=== PATIENT | male | born 1985 | race Caucasian/White ===

== ENCOUNTER 2019-07-23 09:22 | Emergency (ER) | payer OTHER, SELFPAY ==
[2019-07-23 09:40] VITALS: BP 130/72; PULSE 82; RESP 16; TEMP 37.4; O2SAT 99
--- NOTE | 2019-07-23 09:42 | ED.DENTAL ---
HPI - Dental/Oral General Chief complaint: Dental/Oral Stated complaint: toothache/swollen right face Time Seen by Provider: 07/23/19 10:04 Source: patient and RN notes reviewed Mode of arrival: ambulatory Limitations: no limitations History of Present Illness HPI Narrative: This is a 34 years old male presents to the office for an evaluation of dental pain for two days. Pain began shortly after he ate. He claims he broke his teeth eating hamburger. He noticed a swelling last night and worse this morning. He admits to bad teeth in the past. He considers getting all his teeth removed to prevent this from recurrent. Related Data Home Medications Medication Instructions Recorded Confirmed buprenorphine-naloxone 1 film DAILY 07/23/19 07/23/19 Allergies Allergy/AdvReac Type Severity Reaction Status Date / Time Sulfa (Sulfonamide Allergy Mild Rash Verified 07/23/19 09:56 Antibiotics) Review of Systems Review of Systems: Narrative: CONSTITUTIONAL: Denies fever or feeling ill ENT: Denies trouble swallowing. CARDIOVASCULAR: Denies chest pain RESPIRATORY: Denies dyspnea GASTROINTESTINAL: Denies abdominal pain, nausea, vomiting, GI blood. SKIN: Denies rash MUSCULOSKELETAL: Denies facial injury/trauma NEUROLOGIC: Denies lightheaded PMFSH Past Medical History Medical History (Updated 07/23/19 @ 10:12 by CARY Preston) Hx of opioid abuse Social History Social History Gender identity (if verbalized by the patient): Male Comments At time of signature, I agree with nursing past medical, surgical, social and family history. There is no relevant family history pertinent to the presenting complaint. Exam Narrative: Exam Narrative: GENERAL: This is a well-nourished, well-developed patient, in no apparent distress. Older than state age. EYES: Sclera and conjunctivae normal ENT: External ears normal. Nose and lips normal. Airway patent.The tooth in question is very carious and the gum is swollen and tender around it. There is right side facial swelling without cervical or submandibular lymphadenopathy. The patient appears uncomfortable and in pain. CARDIOVASCULAR: Regular rate and rhythm without murmurs, gallops, or rubs. RESPIRATORY: Clear to auscultation. Breath sounds equal bilaterally. No wheezes, rales, or rhonchi. GASTROINTESTINAL: Abdomen soft, non-tender, nondistended. Bowel sounds are active. No hepato-splenomegaly, or palpable masses. No guarding. NEURO: awake, alert, and oriented to person, place and time. There were no obvious focal neurologic abnormalities. Course Vital Signs Vital signs: Vital Signs Temperature 99.3 F 07/23/19 09:40 Pulse Rate 82 07/23/19 09:40 Respiratory Rate 16 07/23/19 09:40 Blood Pressure 130/72 07/23/19 09:40 Pulse Oximetry 99 07/23/19 09:40 Temperature 99.3 F 07/23/19 09:40 Pulse Rate 82 07/23/19 09:40 Respiratory Rate 16 07/23/19 09:40 Blood Pressure 130/72 07/23/19 09:40 Pulse Oximetry 99 07/23/19 09:40 MDM - Dental/Oral MDM Narrative Medical decision making narrative: Discharge instructions reviewed with patient, as well as provided in writing per nursing staff. The instructions also include specific and strict return/GO TO THE ER as well as f/u information. All questions have been answered, and the patient deny any further questions with discharge and discharge plan. Differential Diagnosis Differential diagnosis: Likely gingival abscess, dental caries, toothache, dental abscess, fracture of tooth and aphthous ulcer Critical Care Time Critical Care Time Critical Care Time: No Discharge Plan Discharge Clinical Impression: Gingivitis Patient Disposition: Home, Self-Care Condition: Stable Instructions: Antibiotic Form, Toothache (ED) Additional Instructions: Take antibiotic until it's gone. Brushing teeth at least twice daily with gentle ismael
== END 2019-07-23 10:11 | disposition home or self-care (01) ==
PROVIDERS: Emergency Provider Nurse Practitioner
DX: K05.10 Chronic gingivitis, plaque induced (principal)
CPT/HCPCS: 99213; G0463

== ENCOUNTER 2019-07-24 11:33 | Emergency (ER) | payer OTHER, SELFPAY ==
--- NOTE | 2019-07-24 11:56 | ED.DENTAL ---
HPI - Dental/Oral General Chief complaint: Dental/Oral <Clayton Schaffer PA-C - Last Filed: 07/24/19 11:59> Stated complaint: Tooth pain, face swelling <Clayton Schaffer PA-C - Last Filed: 07/24/19 11:59> Time Seen by Provider: 07/24/19 11:39 <Clayton Schaffer PA-C - Last Filed: 07/24/19 11:59> Source: patient and family <Clayton Schaffer PA-C - Last Filed: 07/24/19 11:59> Mode of arrival: ambulatory <Clayton Schaffer PA-C - Last Filed: 07/24/19 11:59> Limitations: no limitations <Clayton Schaffer PA-C - Last Filed: 07/24/19 11:59> History of Present Illness HPI Narrative: Patient is a 34-year-old male who presents to emergency department with dental abscess was seen yesterday at urgent care prescribed amoxicillin lidocaine swish and Toradol for pain. Patient notes that the swelling of the face continues to worsen. Patient notes moderate aching pain worse with touch and movement. Patient denies fever chills nausea vomiting or URI symptoms <Clayton Schaffer PA-C - Last Filed: 07/24/19 11:59> Related Data Home medications: Home Medications Medication Instructions Recorded Confirmed buprenorphine-naloxone 1 film DAILY 07/23/19 07/23/19 <Clayton Schaffer PA-C - Last Filed: 07/24/19 11:59> Allergies/adverse reactions: Allergies Allergy/AdvReac Type Severity Reaction Status Date / Time Sulfa (Sulfonamide Allergy Mild Rash Verified 07/24/19 12:00 Antibiotics) <Clayton Schaffer PA-C - Last Filed: 07/24/19 11:59> Review of Systems Review of Systems: All systems reviewed & are unremarkable except as noted in HPI and below <Clayton Schaffer PA-C - Last Filed: 07/24/19 11:59> PMFSH Past Medical History Medical History: Medical History Hx of opioid abuse <Clayton Schaffer PA-C - Last Filed: 07/24/19 11:59> Social History Social History: Social History (Updated 05/28/20 @ 11:57 by Clayton Schaffer PA-C) Substance use type: heroin Gender identity (if verbalized by the patient): Male <Clayton Schaffer PA-C - Last Filed: 07/24/19 11:59> Exam Narrative: Exam Narrative: GENERAL: Well-appearing, well-nourished, and in no acute distress. HEAD: Normocephalic, atraumatic. EYES: PERRLA and EOMI. ENT: Nares clear, no rhinorrhea or epistaxis. Mucous membranes moist. Oropharynx without tonsillar hypertrophy exudate or other lesions. Patient with gross dental caries with fluctuant area above the frontal incisors. Uvula midline no trismus or drooling. NECK: Supple. No adenopathy or masses. EXTREMITIES: Normal range of motion. No edema. SKIN: Warm, dry, no rash. NEURO: No focal deficits. Alert and oriented x3. Cranial nerves II through XII grossly intact PSYCH: Normal mood and affect. <Clayton Schaffer PA-C - Last Filed: 07/24/19 11:59> Course Course Emergency Course: Patient in the room afebrile nontoxic-appearing no distress felt appropriate for discharge home <Clayton Schaffer PA-C - Last Filed: 07/24/19 11:59> Vital Signs Vital signs: Vital Signs Temperature 37.4 C 07/24/19 12:00 Respiratory Rate 79 H 07/24/19 12:00 Blood Pressure 123/79 07/24/19 12:00 Pulse Oximetry 97 07/24/19 12:00 Temperature 37.4 C 07/24/19 12:00 Respiratory Rate 79 H 07/24/19 12:00 Blood Pressure 123/79 07/24/19 12:00 Pulse Oximetry 97 07/24/19 12:00 <Clayton Schaffer PA-C - Last Filed: 07/24/19 11:59> Vital Signs Temperature 37.4 C 07/24/19 12:00 Respiratory Rate 79 H 07/24/19 12:00 Blood Pressure 123/79 07/24/19 12:00 Pulse Oximetry 97 07/24/19 12:00 Temperature 37.4 C 07/24/19 12:00 Respiratory Rate 79 H 07/24/19 12:00 Blood Pressure 123/79 07/24/19 12:00 Pulse Oximetry 97 07/24/19 12:00 <Yoana Melo MD - Last Filed: 07/24/19 14:29> Procedures Other Procedure Procedure 1: Other Procedure:
[2019-07-24 12:00] VITALS: BP 123/79; RESP 79; TEMP 37.4; O2SAT 97
== END 2019-07-24 12:09 | disposition home or self-care (01) ==
PROVIDERS: Emergency Provider Emergency Medicine
DX: K04.7 Periapical abscess without sinus (principal)
CPT/HCPCS: 41800; 99283

== ENCOUNTER 2023-08-22 18:51 | Emergency (ER) | payer OTHER, SELFPAY ==
[2023-08-22 19:06] VITALS: BP 112/78; PULSE 93; RESP 16; TEMP 36.7; O2SAT 98
--- NOTE | 2023-08-22 19:29 | PC.NURSE ---
Attempted to call [facility] for further information on why EMS was called without answer or option to leave a message. Will try again later.
--- NOTE | 2023-08-22 20:09 | PC.NURSE ---
Contacted [facility] transport line who answered. The social services technician stated that the patient came to their facility willingly. While they were assessing him, he appeared paranoid with auditory hallucinations. He made was positive for Fentanyl, meth, suboxone, and THC upon arrival. He then became agitated and ran out of their facility saying that he was going to go kill himself. They contacted PD for him to be transported to the hospital.
[2023-08-22 20:27] LABS: Appearance Urine Clear (Clear); Bilirubin Urine Negative (Negative); Blood Urine Negative (Negative); Color Urine Yellow (Yellow); Glucose Urine UA Negative (Negative); Ketones Urine Negative (Negative); Leukocyte Esterase Ur Negative LEU/UL (Negative); Nitrate Urine Negative (Negative); Protein Urine Negative (Negative); Specific Grav Ur 1.022 (1.001-1.035); Urobilinogen Urine 0.2 mg/dL (<2.0); pH Urine 5.5 (5.0-9.0)
[2023-08-22 20:29] LABS: Add Urine Microscopic? NO
--- NOTE | 2023-08-22 20:30 | ED.GENADULT ---
HPI - General Adult General Chief complaint: Psychiatric Symptoms Stated complaint: HEARING VOICES, SI EARLIER TODAY Time Seen by Provider: 08/22/23 19:07 History of Present Illness HPI narrative: Patient is a 38-year-old gentleman who presents emergency department with chief complaint of needs mental health evaluation. Patient recently checked in 2 chest neck and tested positive for methamphetamine fentanyl cannabinoids patient was apparently paranoid hearing voices and the staff was concerned for mental health issues the patient had made in her mid comments of wanting to harm himself and stated that he would run out in traffic take his life thought people were talking about him patient also reported that he had access to firearms and apparently when crisis was called to come evaluate the patient the patient ran out of the back door and jumped a fence into a playground nearby Related Data Home Medications Medication Instructions Recorded Confirmed buprenorphine 4 mg-naloxone 1 mg 1 film DAILY 07/23/19 07/23/19 sublingual film Allergies Allergy/AdvReac Type Severity Reaction Status Date / Time Sulfa (Sulfonamide Allergy Mild Rash Verified 07/25/19 13:10 Antibiotics) Review of Systems Review of Systems: A 10 system review of systems was completed on the patient and is negative except for what is stated in the HPI. Nursing and ancillary documentation was reviewed. [facility] Past Medical History Medical History (Updated 08/22/23 @ 22:24 by Bogdan Nettles MD) Hx of opioid abuse Social History Social History Substance use type: unknown Gender identity (if verbalized by the patient): Male Exam Narrative: GENERAL: Well-appearing, well-nourished, and in no acute distress. HEAD: Normocephalic, atraumatic. EYES: PERRLA and EOMI. ENT: Nares clear, no rhinorrhea or epistaxis. Mucous membranes moist. NECK: Supple. CHEST: Clear to auscultation. No respiratory distress. HEART: Regular rate and rhythm. No murmur heard. Normal peripheral pulses. ABDOMEN: Soft, nontender, nondistended, normal active bowel sounds. EXTREMITIES: Normal range of motion. No edema. SKIN: Warm, dry, no rash. NEURO: No focal deficits. Alert and oriented x3. PSYCH: Normal mood and affect. Course Vital Signs Vital signs: Vital Signs Temperature 36.7 C 08/22/23 19:06 Pulse Rate 93 08/22/23 19:06 Respiratory Rate 16 08/22/23 19:06 Blood Pressure 112/78 08/22/23 19:06 Pulse Oximetry 98 08/22/23 19:06 Oxygen Delivery Room Air 08/22/23 19:06 Temperature 36.7 C 08/22/23 19:06 Pulse Rate 93 08/22/23 19:06 Respiratory Rate 16 08/22/23 19:06 Blood Pressure 112/78 08/22/23 19:06 Pulse Oximetry 98 08/22/23 19:06 Oxygen Delivery Room Air 08/22/23 19:06 Medical Decision Making MDM Narrative Medical decision making narrative: Differential diagnosis includes suicidal ideation polysubstance abuse, personality disorder Patient underwent psychiatric screening labs showed normal CBC with a white count of 4.8 hemoglobin was 12.4 electrolytes within normal limits TSH was low at 0.290 free T4 was 1.29 which is within normal limits urinalysis showed no evidence UTI urine drug screen was positive for amphetamines cocaine and cannabinoids ETOH was negative COVID flu and RSV are negative Patient is medically clear for psychiatric evaluation referral transferred admission The patient was seen by crisis and was allowed to safety plan the patient will be discharged Vital Signs Vital Signs: Vital Signs Temperature 36.7 C 08/22/23 19:06 Pulse Rate 93 08/22/23 19:06 Respiratory Rate 16 08/22/23 19:06 Blood Pressure 112/78 08/22/23 19:06 Pulse Oximetry 98 08/22/23 19:06 Oxygen Delivery Room Air 08/22/23 19:06 Temperature 36.7 C 08/22/23 19:06 Pulse Rate 93 08/22/23 19:06 Respiratory Rate
[2023-08-22 20:41] LABS: Basophils Absolute Auto 0.1 K/mm3 (0.0-0.1); Eosinophils Absolute Auto 0.1 K/mm3 (0-0.3); Eosinophils Percent Auto 1.4 % (0-4.4); Hemoglobin 12.4 g/dL (14.0-18.0); Immature Granulocyte Absolute 0.01 K/mm3 (0.00-0.031); Immature Granulocyte Percent A 0.2 % (0-0.5); Lymphocytes Absolute Auto 1.85 K/mm3 (0.9-3.2); Lymphocytes Percent Auto 38.2 % (18.3-44.2); Mean Corpuscular HGB Conc 32.6 g/dl (32-36); Mean Corpuscular Hemoglobin 28.6 pg (26-34); Mean Corpuscular Volume 87.8 fl (80-100); Mean Platelet Volume 10.3 fl (7.4-10.4); Monocytes Absolute Auto 0.3 K/mm3 (0.1-0.6); Monocytes Percent Auto 6.6 % (2.6-8.5); Neutrophils Absolute Auto 2.5 K/mm3 (1.3-6.7); Neutrophils Percent Auto 52.6 % (45.5-73.1); Platelet Count Result 220 k/mm3 (150-375); Red Blood Count 4.33 M/mm3 (4.6-6.20); Red Cell Distribution Width 14.9 % (11.5-14.5); White Blood Count 4.8 K/mm3 (4.5-10.0)
[2023-08-22 20:46] LABS: Barbiturate Screen Urine Negative (Negative); Benzodiazepines Screen Urine Negative (Negative)
[2023-08-22 20:48] LABS: Cannabinoid Screen Urine Positive (Negative); Cocaine Screen Urine Positive (Negative); Methadone Screen Urine Negative (Negative); Opiate Screen Urine Negative (Negative); Phencyclidine Screen Urine Negative (Negative)
[2023-08-22 20:50] LABS: Ethanol < 10 mg/dL (<10)
[2023-08-22 20:51] LABS: Alanine Aminotransferase 30 U/L (6-50); Albumin Level 4.6 g/dL (3.5-5.1); Alkaline Phosphatase 117 U/L (38-126); Anion Gap 8 mmol/L (4-12); Aspartate Amino Transferase 40 U/L (17-59); Bilirubin,Total 0.4 mg/dL (0.2-1.3); Blood Urea Nitrogen 31 mg/dL (9-20); Calcium 9.6 mg/dL (8.4-10.2); Carbon Dioxide 27 mmol/L (22-30); Chloride 105 mmol/L (98-107); Estimated CRCL calculation 77 ml/min; Estimated Glomerular Filt Rate > 60; Glucose 102 mg/dL (65-110); Potassium 4.3 mmol/L (3.4-5.0); Sodium 140 mmol/L (137-145)
[2023-08-22 21:08] LABS: Amphetamine Screen Urine Positive (Negative)
[2023-08-22 21:16] LABS: Influenza A QL RT-PCR Negative (Negative); Influenza B QL RT-PCR Negative (Negative); RSV RNA, RT-PCR Negative (Negative); SARS-CoV-2 RNA PCR Negative (Negative)
[2023-08-22 22:08] LABS: Free T4 Free Thyroxine Reflex 1.29 ng/dL (0.78-2.19)
[2023-08-22 22:47] LABS: Total Triiodothyronine (T3) 2.86 NG/ML (0.97-1.69)
== END 2023-08-22 23:46 | disposition home or self-care (01) ==
PROVIDERS: Emergency Provider Emergency Medicine
DX: R45.851 Suicidal ideations (principal); F19.10 Other psychoactive substance abuse, uncomplicated; Z11.52 Encounter for screening for COVID-19
CPT/HCPCS: 36415; 80053; 80307; 81003; 84439; 84443; 84480; 85025; 87637; 99284

== ENCOUNTER 2024-07-25 06:52 | Emergency (ER) | payer OTHER, SELFPAY ==
--- NOTE | ~2024-07-25 | CT_ITS ---
History: Altered mental status, unresponsive. PROCEDURE: CT head without contrast. COMPARISON: None TECHNIQUE: Axial imaging of the head performed from the skull base to the vertex without IV contrast. Sagittal a nd coronal reformations obtained. Examination is somewhat limited by motion artifact DLP: 605 mGy-cm FINDINGS: Postoperative change within the right frontoparietal lobe. Loss of lu-white matter differentiation with effacement of the sulci in the bilateral frontal lobes , suggesting edema. Effacement of the fissures and gyri within the cerebellum, also suggesting edema. The ventricles are unremarkable in size, shape and position. There is no mass, mass effect or midline shift. There is no abnormal extra-axial fluid collection or intracranial hemorrhage. Visualized paranasal sinuses are clear. The mastoid air cells are well aerated. Postcraniotomy change within the right frontoparietal lobe. No acute displaced fractures within the remainder of the overlying cranium. Impression: No acute intracranial hemorrhage or suspicious mass effect. Findings suggesting intracranial edema, specifically within the bilateral frontal lobes and cerebellu m. Reviewed, dictated and finalized at location A. Impression: No acute intracranial hemorrhage or suspicious mass effect. Findings suggesting intracranial edema, specifically within the bilateral front al lobes and cerebellum.
[2024-07-25 06:52] VITALS: BP 134/80; PULSE 62; RESP 15; TEMP 36.7; O2SAT 100
--- NOTE | 2024-07-25 07:30 | PC.NURSE ---
Patient not cooperating with questions. When patient asked any question patient responds with leave me alone, I'm tired and refuses to open his eyes and cooperate
--- NOTE | 2024-07-25 07:38 | ECG_ITS ---
Test Date: 2024-07-25 07:58:11 Measurements Intervals [place] Rate: 52 P: 71 WI: 158 QRS: 73 QRSD: 90 T: 76 QT: 442 QTc: 413 Interpretive Statements SINUS BRADYCARDIA MODERATE VOLTAGE CRITERIA FOR LVH, CONSIDER NORMAL VARIANT [MEETS CRITERIA IN ONE OF: R(aVL), S(V1), R(V5), R(V5/V6)+S(V1)] NONSPECIFIC ST AND T WAVE ABNORMALITY No previous ECG available for comparison Electronically Signed On 07-25-2024 15:06:05 CDT by Shila Arora M.D.
[2024-07-25 07:43] LABS: Glucose Point of Care 168 mg/dl (65-105)
[2024-07-25 07:56] LABS: Glucose Point of Care 82 mg/dl (65-105)
[2024-07-25 07:59] LABS: Basophils Percent Auto 0.4 % (0.2-1.2); Eosinophils Percent Auto 0.2 % (0-4.4); Hematocrit 35.4 % (42.0-52.0); Hemoglobin 11.7 g/dL (14.0-18.0); Immature Granulocyte Absolute 0.01 K/mm3 (0.00-0.031); Immature Granulocyte Percent A 0.2 % (0-0.5); Lymphocytes Percent Auto 27.1 % (18.3-44.2); Mean Corpuscular HGB Conc 33.1 g/dl (32-36); Mean Corpuscular Hemoglobin 31.8 pg (26-34); Mean Corpuscular Volume 96.2 fl (80-100); Mean Platelet Volume 10.6 fl (7.4-10.4); Monocytes Absolute Auto 0.3 K/mm3 (0.1-0.6); Monocytes Percent Auto 6.1 % (2.6-8.5); Neutrophils Absolute Auto 3.2 K/mm3 (1.3-6.7); Platelet Count Result 161 k/mm3 (150-375); Red Blood Count 3.68 M/mm3 (4.6-6.20); Red Cell Distribution Width 15.3 % (11.5-14.5); White Blood Count 4.8 K/mm3 (4.5-10.0)
[2024-07-25 08:08] LABS: Ethanol < 10 mg/dL (<10)
[2024-07-25 08:09] LABS: Lactic Acid Reflex 0.9 mmol/L (0.7-2.0)
[2024-07-25 08:10] LABS: Alanine Aminotransferase 49 U/L (6-50); Albumin Level 4.6 g/dL (3.5-5.1); Alkaline Phosphatase 81 U/L (38-126); Anion Gap 10 mmol/L (4-12); Aspartate Amino Transferase 56 U/L (17-59); Bilirubin,Total 0.7 mg/dL (0.2-1.3); Blood Urea Nitrogen 25 mg/dL (9-20); Calcium 9.7 mg/dL (8.4-10.2); Carbon Dioxide 26 mmol/L (22-30); Chloride 105 mmol/L (98-107); Creatine Kinase 153 U/L (55-170); Estimated CRCL calculation 106 ml/min; Estimated Glomerular Filt Rate > 60; Glucose 84 mg/dL (65-110); Potassium 4.1 mmol/L (3.4-5.0); Sodium 141 mmol/L (137-145)
--- OUTSIDE RECORDS SUMMARY | 2024-07-25 08:16 | XMS_ITS | Encounter Summary ---
Author Organization [facility] Healthcare Address [address] [place] [address] Care Team Providers Care Manager Combination Name Role Phone Cecilio Tenorio MD Primary Care Provider [phone] Jay Cardenas MD Primary Care Provider [phone] Encounter Details Date Type Department Care Team (Late st Contact Info) Description 07/20/2020 [facility] Hand Off Program [address] [place] [address] Nora Rivera Social History Tobacco Use Types Packs/Day Years Used Date Smoking Tobacco: Every Day Cigarettes Smokeless Tobacco: Never Alcohol Use Standard Drinks/Week Comments Not Currently 0 (1 standard drink = 0.6 oz pur e alcohol) Sex and Gender Information Value Date Recorded Sex Assigned at Not on file Legal Sex Male 8:52 PM [employer] Gender Identity Not on file Sexual Orientation Not on file documented as of this encounter Plan of Treatment Not on file documented as of this encounter Visit Diagnoses Not on filedocumented in this encounter Additional Health Concerns Infection Onset Date Last Indicated Resolved Time COVID: Suspected 09/12/2022 09/12/2022 09/12/2022 6:49 AM CDT COVID: Suspected 09/12/2022 09/12/2022 09/12/2022 9:26 AM CDT COVID: Suspected 03/20/2024 03/20/2024 03/20/2024 3:11 AM [employer] HEL[employer] COVID: Suspected 03/26/2024 03/26/2024 03/26/2024 9:07 AM [employer]NING 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
--- OUTSIDE RECORDS SUMMARY | 2024-07-25 08:16 | XMS_ITS | Referral Summary ---
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 50.3 % [facility] Plt 198 150 - 400 K/cumm [facility] MPV 10.3 9.1 - 12.3 fL [facility] RBC 4.24(L) 4.30 - 5.80 M/cumm [facility] MCV 90.6 81.3 - 96.4 fL [facility] MCH 29.7 27.1 - 33.3 pg [facility] MCHC 32.8 32.3 - 35.7 g/dL [facility] RDW CV 14.5 11.1 - 14.9 % [facility] RDW SD 48.0 35.7 - 48.1 fL [facility] NRBC abs 0.00 0.00 - 0.01 K/cumm [facility] Blood Venous blood specimen / Unknown 05/03/2024 9:26 AM PREVENTION SPECIALIST 05/03/2024 9:32 AM PREVENTION SPECIALIST Narrative [facility] - 05/03/2024 9:42 AM PREVENTION SPECIALIST Potential Stroke Patient us Aden Grider MD LAB BLOOD ORDERABLES Final Resul t Performing Organization Address [facility] de Phone Number [address] [place] [address] * aPTT (05/03/2024 9:26 AM PREVENTION SPECIALIST) aPTT 32 22 - 37 sec Comment: Interpretive data aPTT test has not been evaluated for monitoring heparin therapy. The anti-Xa is the preferred test. Current interpretive data was last revised on 2019. Blood Venous blood specimen / Unknown 05/03/2024 9:26 AM PREVENTION SPECIALIST 05/03/2024 9:32 AM PREVENTION SPECIALIST Narrative [facility] - 05/03/2024 9:46 AM PREVENTION SPECIALIST Potential stroke patient. us Aden Grider MD LAB BLOOD ORDERABLES Final Resul t Performing Organization Address City/[facility] Co de Phone Number [address] [place] [address] * Protime-INR (05/03/2024 9:26 AM PREVENTION SPECIALIST) PT 14.6 12.0 - 14.6 sec INR 1.1 0.9 - 1.2 [facility] Comment: Ref Range High Interpretive data Oral anticoagulant therapeutic ranges: Venous thromboembolism prophylaxis or treatment: 2.0-3.0 CARDIOLOGY Standard range: 2.0-3.0 High-intensity range: 2.5-3.5 Refer to indication-specific guidelines for appropriate target ranges for prosthetic heart valve replacement. Current interpretive data was last revised on 2019. Blood 05/03/2024 9:26 AM PREVENTION SPECIALIST 05/03/2024 9:32 AM PREVENTION SPECIALIST us Aden Grider MD LAB BLOOD ORDERABLES Final Resul t Performing Organization Address City/[facility]/ZIP Co de Phone Number [facility] [address] [place] [address] * POCT glucose (05/03/2024 9:23 AM PREVENTION SPECIALIST) Pathologist [facility] Glucose, POC 125 70 - 199 mg/dL Glucose comment 1 Use This Result [facility] Blood 05/03/2024 9:23 AM PREVENTION SPECIALIST 05/03/2024 9:23 AM PREVENTION SPECIALIST us Notinfile Unknown LAB POCT ORDERABLES - DEVICE F inal Result Performing Organization Address City/[facility] Co de Phone Number [address] [employer] [place] [address] * ECG 12 lead (05/03/2024 9:14 AM PREVENTION SPECIALIST) [facility] Ventricular Rate EKG/Min 49 BPM [facility] Atrial Rate 49 BPM [facility] LA-Interval (MSEC) 148 ms [facility] QRS-Interval (MSEC) 84 ms [facility] QT-Interval (MSEC) 478 ms [facility] QTc 431 ms [facility] P [place] 56 degrees [facility] R [place] 63 degrees [facility] T [place] 70 degrees [facility] Diagnosis Sinus bradycardia Otherwise normal ECG When compared with ECG of 12-SEP-2022 16:25, No significant change was found Confirmed by RIA SALAZAR M.D. ([id number]) on 05/04/2024 6:46:57 PM [facility] 05/03/2024 9:14 AM PREVENTION SPECIALIST 05/04/2024 6:46 PM CDT us Aden Grider MD ECG ORDERABLES Final Result [facility] * (ABNORMAL) Hepatitis panel, acute Blood (03/20/2024 5:38 PM PREVENTION SPECIALIST) Hep A IgM Nonreactive Nonreactive Comment: Interpretive Data: If Hep A IgM Ab is reported as Equivocal, a new sample should be drawn in two weeks for testing. Current interpretive data was last revised on 19. Hep B core IgM Nonreactive Nonreactive [facility] Comment: Interpretive Data If HepB Core IgM Ab is reported as Equivocal, a new sample should be drawn in two weeks for testing. Current interpretive data was last revised on 19. Hep C Ab Reactive(A) Nonreactive [facility] Comment: Reactive for HCV antibodies. This may represent current or past HCV infection. Supplemental molecular testing will be automatically performed to determine current infection status in accordance with current CDC screening recommendations. Current interpretive data was last revised on 21 Interpretive Data Nonreactive: Antibodies to HCV not detected. Does NOT exclude the possibility of recent exposure to HCV. Equivocal: Equivocal for HCV antibodies. Supplemental molecular testing will be automatically performed to determine infection status in accordance with current CDC screening recommendations. Reactive: Positive for HCV antibodies. This may represent current or past HCV infection. Supplemental molecular testing will be automatically performed to determine current infection status in accordance with current CDC screening recommendations. Interpretive data was last revised on 2019. HepBsAg Nonreactive Nonreactive [facility] Blood 03/20/2024 5:38 PM PREVENTION SPECIALIST 03/20/2024 5:50 PM PREVENTION SPECIALIST us Yazmin Farias NP LAB MICROBIOLOGY - GENERAL ORDERABLES Final Result [facility] [address] [place] [address] from Last 3 Months or Most Recently Relevant to Health Maintenance Insurance [address] [place] [address] Advance Directives For more information, please contact: [phone] * Full Code (Latest Code Status on File) Date Activated Date Inactivated Comments 03/20/2024 5:03 PM 03/21/2024 2:28 PM * Full Code Date Activated Date Inactivated Comments 09/12/2022 2:40 PM 09/13/2022 4:21 PM * Full Code Date Activated Date Inactivated Comments 09/12/2022 1:26 PM 09/12/2022 2:40 PM Care Teams Window Shade Estimator Relationship Specialty Start Date End Date Jay Cardenas MD [address] [facility] [address] [address] PCP - General Family Medicine 03/16/23
--- OUTSIDE RECORDS SUMMARY | 2024-07-25 08:16 | XMS_ITS | Clinical Summary ---
Author Organization [facility] Virtual Care Address [address] [place] [phone] Phone Care Team Providers Care Typo Machine Operator Name Role Phone Jay Cardenas MD Primary Care Provider [phone] Allergies Active Allergy Reactions Criticality Noted Date [...] fracture of neck of metacarpal bone 11/28/2017 Encounters Date Type Department Care Team Description 07/25/2024 2:57 AM CDT - 07/25/2024 3:26 AM T [address] [address] Discharge Disposition: Incorrect Patient 06/25/2024 Telephone [facility] Family Medicine at [address] [place] [phone] Jay Cardenas MD 2nd no show letter sent 06/25/24 06/23/2024 12:39 PM CDT - 06/23/2024 2:06 PM T Emergency [address] [address] Discharge Disposition: Left Against Medical Advice 06/02/2024 Telephone [facility] Family Medicine at [address] [place] [address] Jay Cardenas MD Referral Request 05/03/2024 9:26 AM ROLL SHOP SUPERVISOR - 05/03/2024 10:[address] [address] Aden Grider MD Seizure (HCC) (Primary Dx) Discharge Disposition: Left Against Medical Advice from Last 3 Months Immunizations Immunization Administration Dates Next Due Influenza, Trivalent, Split, Preservative Free, Intradermal 01/13/2014 Influenza, Unspecified 12/13/2023(Deferr ed: Patient decision),03/16/2023(Deferred: Patient Refused),01/09/2023(Deferred: Patient decision) Pneumococcal Polysaccharide PPV23 01/13/2014 Tdap 05/24/2023,04/22/2018 Surgical History Surgery Date Site/Laterality Comments BRAIN SURGERY Medical History Medical History Date Comments Hepatitis C TBI (traumatic brain injury) ([facility]) Social History Tobacco Use Types Packs/Day Years [...] on file Legal Sex Male 8:52 PM ROLL SHOP SUPERVISOR Gender Identity Not on file Sexual Orientation Not on file Obstetrics History Last Filed Vital Signs Vital Sign Reading Time Taken Comments Blood Pressure 134/96 06/23/2024 12:42 PM CDT Pulse 69 06/23/2024 12:42 PM CDT Temperature 37.1 C (98.8 F) 06/23/2024 12:42 PM CDT Respiratory Rate 16 06/23/2024 12:42 PM CDT Oxygen Saturation 98% 06/23/2024 12:42 PM CDT Inhaled Oxygen Concentration - - Weight 65.1 kg (143 lb 8.3 oz) 05/03/2024 9:26 A M ROLL SHOP SUPERVISOR Height 177.8 cm (5' 10) 03/26/2024 8:38 AM ROLL SHOP SUPERVISOR Body Mass Index 20.59 03/26/2024 8:38 AM ROLL SHOP SUPERVISOR Plan of Treatment Health Maintenance Due Date Last Done Comments Varicella Vaccines (1 of 2 - 13+ 2-dose series) 1996 Hepatitis B Screening 2001 Pneumococcal vaccine <65 (2 of 2 - PCV) 01/13/2015 01/13/2014 Regular Well Visit/Exam 18-64 03/16/2024 03/16/2023 Influenza Vaccine (Season Ended) 2024 01/13/2014 Depression Screening 03/26/2025 03/26/2024, 03/26/2024, 03/16/2023, Additional history exists DTaP/Tdap/Td Vaccine (3 - Td or Tdap) 05/23/2033 05/24/2023, 04/22/2018 Hepatitis C Screening Completed 03/20/2024 , 03/16/2023, 03/16/2023, Additional history exists HPV Vaccines Aged Out No longer eligi ble based on patient's age to complete this topic Procedures Procedure Name Priority Date/Time Associated Diagnosis Comments CTA STROKE HEAD NECK W CONTRAST Critical/Life-T hreatening 05/03/2024 9:[address] STROKE PROTOCOL WO CONTRAST Critical/Life-T hreatening 05/03/2024 9:32 AM ROLL SHOP SUPERVISOR DIFFERENTIAL AUTO STAT 05/03/2024 9:2 6 AM ROLL SHOP SUPERVISOR APTT STAT 05/03/2024 9:26 AM ROLL SHOP SUPERVISOR PROTIME-INR STAT 05/03/2024 9:26 AM ROLL SHOP SUPERVISOR CBC WITH AUTO DIFFERENTIAL STAT 05/03/2024 9:26 AM ROLL SHOP SUPERVISOR POCT GLUCOSE DEVICE Routine 05/03/2024 9 :23 AM ROLL SHOP SUPERVISOR ECG 12-LEAD STAT 05/03/2024 9:14 AM ROLL SHOP SUPERVISOR HEPATITIS PANEL, ACUTE Routine 03/20/2024 5:38 PM ROLL SHOP SUPERVISOR from Last 3 Months or Most Recently Relevant to Health Maintenance Results * CTA Stroke Head Neck W Contrast (05/03/2024 9:38 AM ROLL SHOP SUPERVISOR) Anatomical Region Laterality Modality Head and Neck N/A Computed Tomogra phy 05/03/2024 9:43 AM ROLL SHOP SUPERVISOR Narrative 05/03/2024 9:59 AM ROLL SHOP SUPERVISOR EXAM DESCRIPTION: CTA STROKE HEAD NECK W [...] immunosuppression, or patients with known primary cancer. http://pubs.rsna.org/doi/pdf/10.1148/radiol.7318370047 The findings of no intracranial large vessel occlusion were communicated to the ordering clinician by the operation litigation support analyst at the time of this dictation on 05/03/2024 at 9:57 a.m. central standard time. THIS IS AN ELECTRONICALLY VERIFIED FINAL REPORT 05/03/2024 9:59 AM - Electronically signed by Lam BERRY T: Report ID: [id number] Reading Location: [place] [address] Procedure Note Lam Arora, DO - 05/03/2024 [...] withimmunosuppression, or patients with known primary cancer. http://pubs.rsna.org/doi/pdf/10.1148/radiol.5420550146 The findings of no intracranial large vessel occlusion were communicatedto the ordering clinician by the operation litigation support analyst at the time of this dictation on 05/03/2024 at 9:57 a.m. central standard time. THIS IS AN ELECTRONICALLY VERIFIED FINAL REPORT 05/03/2024 9:59 AM - Electronically signed by Lam BERRY T: Report ID: [id number] Reading Location: [id number] us Aden Grider MD IMG CT PROCEDURES Final Result * CT Stroke Head WO Contrast (05/03/2024 9:32 AM ROLL SHOP SUPERVISOR) Anatomical Region Laterality Modality Head N/A Computed Tomogra phy 05/03/2024 9:36 AM ROLL SHOP SUPERVISOR Addenda Addendum by Miguel Hyde MD on 05/03/2024 9:54 AM ROLL SHOP SUPERVISOR ADDENDUM: This addendum report supersedes the original report dated 05/03/2024 These significant findings were reported by telephone to Dr. Grider on 05/03/2024 at 0945 . END OF ADDENDUM REPORT THIS IS AN ELECTRONICALLY VERIFIED FINAL REPORT 05/03/2024 9:54 AM Addendum Electronically signed by Miguel CAMARGO T: Report ID: [id number] Reading Location: [id number] Narrative 05/03/2024 9:44 AM ROLL SHOP SUPERVISOR EXAM DESCRIPTION: CT STROKE HEAD WO CONTRAST [...] 9:44 AM - Electronically signed by Miguel Hyde M.D. NS T: Report ID: [id number] Reading Location: [id number] Procedure Note Miguel Hyde MD - 05/03/2024 [...] Sagittal and coronal images reconstructed. Images stored on[employer]. Automated exposure control was used as a [...] signed by Miguel CAMARGO T: Report ID: [id number] Reading Location: [place] [address] Aden Grider MD IM CT PROCEDURES Edited Result - Final * Differential, auto (05/03/2024 9:26 AM ROLL SHOP SUPERVISOR) Pathologist [facility] Neutrophil abs 2.6 1.5 - 6.5 K/cumm Imm gran abs 0.0 0.0 - 0.1 K/cumm [facility] Lymphocyte abs 1.0 0.8 - 3.3 K/cumm [facility] Monocyte abs 0.2 0.2 - 0.8 K/cumm [facility] Eosinophil abs 0.0 0.0 - 0.5 K/cumm [facility] Basophil abs 0.0 0.0 - 0.1 K/cumm [facility] Neutrophil pct 67.5 % [facility] Comment: Interpretive Data Percent cell count reference ranges are not reported, since discordance with absolute values may lead to misinterpretation of CBC data. Current Interpretive Data was last revised on 2017. Imm gran pct 0.3 % [facility] Comment: Interpretive Data Percent cell count reference ranges are not reported, since discordance with absolute values may lead to misinterpretation of CBC data. Current Interpretive Data was last revised on 2017. Lymphocyte pct 25.4 % [facility] Comment: Interpretive Data Percent cell count reference ranges are not reported, since discordance with absolute values may lead to misinterpretation of CBC data. Current Interpretive Data was last revised on 2017. Monocyte pct 5.7 % [facility] Comment: Interpretive Data Percent cell count reference ranges are not reported, since discordance with absolute values may lead to misinterpretation of CBC data. Current Interpretive Data was last revised on 2017. Eosinophil pct 0.3 % [facility] Comment: Interpretive Data Percent cell count reference ranges are not reported, since discordance with absolute values may lead to misinterpretation of CBC data. Current Interpretive Data was last revised on 2017. Basophil pct 0.8 % [facility] Comment: Interpretive Data Percent cell count reference ranges are not reported, since discordance with absolute values may lead to misinterpretation of CBC data. Current Interpretive Data was last revised on 2017. Blood 05/03/2024 9:26 AM ROLL SHOP SUPERVISOR 05/03/2024 9:32 AM ROLL SHOP SUPERVISOR dAen Grider MD LAB BLOOD ORDERABLES Final Resul t Performing Organization Address City/[facility] Co de Phone Number [facility] [address] [place] [address] * (ABNORMAL) CBC with auto differential (05/03/2024 9:26 AM ROLL SHOP SUPERVISOR) WBC 3.9 3.8 - 9.9 K/cumm Hgb 12.6(L) 13.0 - 17.5 g/dL [facility] Hct 38.4(L) 38.9 - 50.3 % [facility] Plt 198 150 - 400 K/cumm [facility] MPV 10.3 9.1 - 12.3 fL [facility] RBC 4.24(L) 4.30 - 5.80 M/cumm [facility] MCV 90.6 81.3 - 96.4 fL [facility] MCH 29.7 27.1 - 33.3 pg [facility] MCHC 32.8 32.3 - 35.7 g/dL [facility] RDW CV 14.5 11.1 - 14.9 % [facility] RDW SD 48.0 35.7 - 48.1 fL [facility] NRBC abs 0.00 0.00 - 0.01 K/cumm [facility] Blood Venous blood specimen / Unknown 05/03/2024 9:26 AM ROLL SHOP SUPERVISOR 05/03/2024 9:32 AM ROLL SHOP SUPERVISOR Narrative [facility] - 05/03/2024 9:42 AM ROLL SHOP SUPERVISOR Potential Stroke Patient us Aden Grider MD LAB BLOOD ORDERABLES Final Resul t Performing Organization Address City/[facility]/ZIP Co de Phone Number [facility] [address] [place] [address] [place] [address] * aPTT (05/03/2024 9:26 AM ROLL SHOP SUPERVISOR) [facility] aPTT 32 22 - 37 sec Comment: Interpretive data aPTT test has not been evaluated for monitoring heparin therapy. The anti-Xa is the preferred test. Current interpretive data was last revised on 2019. Blood Venous blood specimen / Unknown 05/03/2024 9:26 AM ROLL SHOP SUPERVISOR 05/03/2024 9:32 AM ROLL SHOP SUPERVISOR Narrative [facility] - 05/03/2024 9:46 AM ROLL SHOP SUPERVISOR Potential stroke patient. Aden Grider MD LAB BLOOD ORDERABLES Final Resul t Performing Organization Address City/[facility] Co de Phone Number [address] [address] * Protime-INR (05/03/2024 9:26 AM ROLL SHOP SUPERVISOR) [facility] PT 14.6 12.0 - 14.6 sec INR 1.1 0.9 - 1.2 [facility] Comment: Ref Range High Interpretive data Oral anticoagulant therapeutic ranges: Venous thromboembolism prophylaxis or treatment: 2.0-3.0 CARDIOLOGY Standard range: 2.0-3.0 High-intensity range: 2.5-3.5 Refer to indication-specific guidelines for appropriate target ranges for prosthetic heart valve replacement. Current interpretive data was last revised on 2019. Blood 05/03/2024 9:26 AM ROLL SHOP SUPERVISOR 05/03/2024 9:32 AM ROLL SHOP SUPERVISOR Aden Grider MD LAB BLOOD ORDERABLES Final Resul t [address] [address] * POCT glucose (05/03/2024 9:23 AM ROLL SHOP SUPERVISOR) [facility] Glucose, POC 125 70 - 199 mg/dL Glucose comment 1 Use This Result [facility] Blood 05/03/2024 9:23 AM ROLL SHOP SUPERVISOR 05/03/2024 9:23 AM ROLL SHOP SUPERVISOR us Notinfile Unknown LAB POCT ORDERABLES - DEVICE F inal Result [facility] [address] [facility] Department [place] [address] * ECG 12 lead (05/03/2024 9:14 AM ROLL SHOP SUPERVISOR) Pathologist [facility] Ventricular Rate EKG/Min 49 BPM [facility] Atrial Rate 49 BPM [facility] [place]-Interval (MSEC) 148 ms [facility] QRS-Interval (MSEC) 84 ms [facility] QT-Interval (MSEC) 478 ms [facility] QTc 431 ms [facility] P [place] 56 degrees [facility] R [place] 63 degrees [facility] T [place] 70 degrees [facility] Diagnosis Sinus bradycardia Otherwise normal ECG When compared with ECG of 12-SEP-2022 16:25, No significant change was found Confirmed by RIA SALAZAR M.D. ([id number]) on 05/04/2024 6:46:57 PM [facility] 05/03/2024 9:14 AM ROLL SHOP SUPERVISOR 05/04/2024 6:46 PM CDT us Aden Grider MD ECG ORDERABLES Final Result Performing Organization Address City/[facility] Co de Phone Number [facility] * (ABNORMAL) Hepatitis panel, acute Blood (03/20/2024 5:38 PM ROLL SHOP SUPERVISOR) Pathologist [facility] Hep A IgM Nonreactive Nonreactive Comment: Interpretive Data: If Hep A IgM Ab is reported as Equivocal, a new sample should be drawn in two weeks for testing. Current interpretive data was last revised on 19. Hep B core IgM Nonreactive Nonreactive [facility] Comment: Interpretive Data If HepB Core IgM Ab is reported as Equivocal, a new sample should be drawn in two weeks for testing. Current interpretive data was last revised on 19. Hep C Ab Reactive(A) Nonreactive [facility] Comment: Reactive for HCV antibodies. This may [...] last revised on 2019. HepBsAg Nonreactive Nonreactive [facility] Blood 03/20/2024 5:38 PM ROLL SHOP SUPERVISOR 03/20/2024 5:50 PM ROLL SHOP SUPERVISOR Yazmin Farias NP LAB MICROBIOLOGY - GENERAL ORDERABLES Final Result [facility] [address] [facility] Department [place] [address] from Last 3 Months or Most Recently Relevant to Health Maintenance Insurance Advance Directives For more information, please contact: [phone] * Full Code (Latest Code Status on File) Date Activated Date Inactivated Comments 03/20/2024 5:03 PM 03/21/2024 2:28 PM * Full Code Date Activated Date Inactivated Comments 09/12/2022 2:40 PM 09/13/2022 4:21 PM * Full Code Date Activated Date Inactivated Comments 09/12/2022 1:26 PM 09/12/2022 2:40 PM Care Teams Typo Machine Operator Relationship Specialty Start Date End Date Jay Cardenas MD [address] [facility] [address] GARCIA [address] [place] [address] PCP - General Family Medicine 03/16/23
--- OUTSIDE RECORDS SUMMARY | 2024-07-25 08:16 | XMS_ITS ---
Author Organization [facility] Address [address] [place] [address] Care Team Providers Care Chainstitch Sewing Machine Operator Name Role Phone Melecio Royal Primary Care Provider Inderjit Peralta Unavailable [phone] REASON FOR VISIT mat new, Suboxone, Opioids, last use 05/26/2024, released from [facility] Social History Sex Assigned At : Social History Observation Description Sex Assigned At Male Encounters Encounter Location Date Provider Diagnosis [address] [place] [address] 05/29/2024 Inderjit Peralta Plan Of Treatment No Information Progress Notes * RASHAD Arnoldo ValadezDOB:1985 (39 yo M)Acc No.[id number]:05/29/2024 UNLOCKED PROGRESS NOTE Patient: Arnoldo PARSONS Provider: HIREN Zhang, FERRYBOAT PILOT, CASINO SURVEILLANCE OFFICER-C :1985 A ge:39 Y S ex:Male Date:05/29/2024 Phone: Address:[address] [place], [place] [id number] Pcp:Melecio Royal Subjective: * Chief Complaints: * 1 . mat new, Suboxone, Opioids, last use 05/26/2024, released from [facility]. * Medical History: Objective: * Vitals: Assessment: Plan: * Treatment: * * Electronic signature of Ursula Peralta APRN, [id number] on 07/25/2024 at 02:58 AM CDT Sign off status: Pending * Provider: Allyson Peralta, MSN, FERRYBOAT PILOT, [employer]INO SURVEILLANCE OFFICER-C Date: 0 05/29/2024 Generated for Mago suarez/Olive/Mitch on: 0 07/25/2024 02:58 AM CDT
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
--- OUTSIDE RECORDS SUMMARY | 2024-07-25 08:16 | XMS_ITS | Encounter Summary ---
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 Gender Identity Not on file Sexual Orientation Not on file documented as of this encounter Medications at Time of Discharge DULoxetine DR (CYMBALTA) 30 mg capsuleIndicatio ns:Severe episode of recurrent major depressive disorder, without psychotic features (HCC) Take 1 capsule (30 mg total) by mouth 2 (two) times a day 180 capsule 3 03/26/2024 03/26/2025 guaiFENesin-code ine (GUAITUSS AC) liquid 100-10 mg/5 mLIndications:Br onchitis Take 5-10 mL by mouth every 4 (four) hours as needed for cough 120 mL 03/26/2024 hydrOXYzine (ATARAX) 25 mg tabletIndication s:Generalized anxiety disorder Take 1 tablet (25 mg total) by mouth 3 (three) times a day as needed for itching 90 tablet 5 03/26/2024 09/22/2024 methylPREDNISolo ne (MEDROL DOSEPACK) 4 mg DosepackIndicati ons:Bronchitis Take as directed on package. 21 tablet 03/26/2024 traZODone (DESYREL) 150 mg tabletIndication s:Severe episode of recurrent major depressive disorder, without psychotic features (HCC) Take 1 tablet (150 mg total) by mouth nightly 90 tablet 1 03/26/2024 09/22/2024 documented as of this encounter Discharge Disposition Disposition Code Departure Means Destination Incorrect Patient documented in this encounter Plan of Treatment Not on file documented as of this encounter Visit Diagnoses Not on filedocumented in this encounter Care Teams Hydro Plant Operator Relationship Specialty Start Date End Date Jay Cardenas MD [address] [place] [address] PCP - General Family Medicine 03/16/23 documented as of this encounter
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
--- OUTSIDE RECORDS SUMMARY | 2024-07-25 08:17 | XMS_ITS ---
Author Organization [facility] Address [address] [place] [address] Care Team Providers Care Director Clinical Research Name Role Phone Melecio Royal Primary Care Provider Surjit Rodriguez [phone] REASON FOR VISIT Est Psych, MAT Patient. Extremely paranoid, SI Medications Medication SIG (Take, Route, Frequency, Duration) Notes Start Date End Date Status Buprenorphine HCl-Naloxone HCl 8-2 MG 1 tablet under the tongue and allow to dissolve Sublingual twice daily 09/07/2023 Active Social History Sex Assigned At : Social History Observation Description Sex Assigned At Male Encounters Encounter Location Date Provider Diagnosis [address] [address] 09/13/2023 Surjit Rodriguez Plan Of Treatment No Information Progress Notes * RASHAD Arnoldo ValadezDOB:1985 (39 yo M)Acc No.[id number]:09/13/2023 UNLOCKED PROGRESS NOTE Patient: Arnoldo PARSONS Provider: Allyson Rodriguez DNP, PMHNP- :1985 A ge:38 Y S ex:Male Date:09/13/2023 Phone: Address:[facility] [address] Pcp:Melecio Royal Subjective: * Chief Complaints: * 1 . Est Psych, MAT Patient. Extremely paranoid, SI. * Medical History: * Medications: T aking Buprenorphine HCl-Naloxone HCl 8-2 MG Tablet Sublingual 1 tablet under the tongue and allow to dissolve Sublingual twice daily Objective: * Vitals: Assessment: Plan: * Treatment: * * Electronic signature of Cheyenne Rodriguez , GRINDER SET UP OPERATOR INTERNAL, [id number] on 07/25/2024 at 08:16 AM CDT Sign off status: Pending * Provider: Allyson Rodriguez DNP, PMHNP-BC Date: 0 09/13/2023 Generated for Mago suarez/Olive/Mitch on: 0 07/25/2024 08:16 AM CDT
[2024-07-25 08:27] VITALS: BP 118/77; PULSE 70; RESP 18; O2SAT 100
[2024-07-25] MEDS: SODIUM CHLORIDE 0.9% IV 1,000 ML 999 ML IV CONT (08:29)
[2024-07-25 08:31] LABS: Glucose Point of Care 113 mg/dl (65-105)
[2024-07-25 09:03] LABS: Glucose Point of Care 112 mg/dl (65-105)
[2024-07-25 09:42] LABS: Add Urine Microscopic? YES; Appearance Urine Clear (Clear); Bacteria Urine None Seen /hpf; Bilirubin Urine Negative (Negative); Blood Urine Negative (Negative); Color Urine Dark Yellow (Yellow); Glucose Urine UA Negative (Negative); Ketones Urine Trace mg/dL (Negative); Leukocyte Esterase Ur Negative LEU/UL (Negative); Nitrate Urine Negative (Negative); Non Pathogenic Casts 0-2; Protein Urine Trace mg/dL (Negative); RBC Urine 0-2 /hpf (0-2); Squamous Epithelial Cell Urine None Seen /hpf (Few); WBC Urine 0-5 /hpf (0-3)
--- NOTE | 2024-07-25 09:46 | PC.NURSE ---
Patient awake and alert at this time watching TV. Patient ate sandwich and chips per verbal order from Dr Montgomery.
[2024-07-25 09:58] LABS: Amphetamine Screen Urine Positive (Negative); Barbiturate Screen Urine Negative (Negative); Benzodiazepines Screen Urine Negative (Negative); Cannabinoid Screen Urine Negative (Negative); Cocaine Screen Urine Positive (Negative); Methadone Screen Urine Negative (Negative); Opiate Screen Urine Negative (Negative); Phencyclidine Screen Urine Negative (Negative)
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
[2024-07-25 10:35] VITALS: BP 113/79; PULSE 68; RESP 18; O2SAT 97
[2024-07-25 10:39] LABS: Glucose Point of Care 88 mg/dl (65-105)
--- NOTE | 2024-07-25 11:15 | PC.NURSE ---
Patient requesting to have IV removed and leave AMA. Provider aware to go speak with patient. Patient A&Ox4 at this time.
--- NOTE | 2024-07-25 11:32 | PC.NURSE ---
Patient states he wants to leave AMA. Provider and this RN spoke with patient about risks of leaving ER AMA. Patient states he wants to leave. Patient advised to go to the nearest ER if symptoms get worse.
== END 2024-07-25 11:34 | disposition left against medical advice (07) ==
PROVIDERS: Emergency Provider Emergency Medicine
DX: E16.2 Hypoglycemia, unspecified (principal); R93.0 Abnormal findings on diagnostic imaging of skull and head, not elsewhere classified; F19.10 Other psychoactive substance abuse, uncomplicated
CPT/HCPCS: 36415; 70450; 80053; 80307; 81001; 82077; 82550; 82948; 83605; 85025; 93005; 96360; 99284; J7030